=== PATIENT | female | born 1945 | race Caucasian/White ===

== ENCOUNTER 2025-01-12 08:32 | Outpatient (CLI) | payer MEDICARE, BC ==
[2025-01-12] MEDS ORDERED: Iopamidol 300 61% 100 ML VIAL FS ONE (13:16)
== END 2025-01-12 08:33 | disposition home or self-care (01) ==
LOC: CSHCT 08:32
PROVIDERS: ATTEND Family Medicine
DX: M89.8X8 Other specified disorders of bone, other site (principal); C90.00 Multiple myeloma not having achieved remission; M89.58 Osteolysis, other site; M79.89 Other specified soft tissue disorders
CPT/HCPCS: 70487; Q9967